=== PATIENT | female | born 1970 | race Caucasian/White ===

== ENCOUNTER 2018-10-28 17:47 | Emergency (ER) | payer MEDICAID, SELFPAY ==
[2018-10-28 17:51] VITALS: BP 145/80; PULSE 77; RESP 22; TEMP 36.6; O2SAT 99; BMI 21.0
--- NOTE | 2018-10-28 17:58 | ED.RN ---
PT REFUSED TO ANSWER QUESTIONS, UNABLE TO OBTAIN MUCH OF THE NEEDED INFORMATION.
--- NOTE | 2018-10-28 17:59 | ED.RN ---
DR. CLARK AT BEDSIDE TALKING WITH PT AND IS COOPERATIVE AND ANSWERING QUESTIONS FOR PHYSICIAN.
--- NOTE | 2018-10-28 18:01 | EKG12_ITS ---
Test Reason : Blood Pressure : / mmHG Vent. Rate : 066 BPM Atrial Rate : 066 BPM P-R Int : 166 ms QRS Dur : 068 ms QT Int : 406 ms P-R-T Axes : 078 090 071 degrees QTc Int : 425 ms Normal sinus rhythm Possible Left atrial enlargement Rightward axis Septal infarct , age undetermined Abnormal ECG Confirmed by NAHUN JARAMILLO, ZACK ([id number]), legal editor JACKSON JOHNSON ([id number] on 11/01/2018 2:46:33 PM Referred By: AMBER Confirmed By:ZACK GARNICA MD
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
[2018-10-28] MEDS: Ondansetron 4 MG/2 ML Vial IV (18:11)
[2018-10-28] MEDS: Morphine 4 MG/ML Syringe IV ×2 (18:11→18:57)
[2018-10-28] MEDS: 0.9% Normal Saline 1,000 ML 150 ML IV (18:11)
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
[2018-10-28 18:21] LABS: Absolute Lymphocyte Count 2.64 X10^3/ul (0.83-4.51); Absolute Neutrophil Count 6.7 X10^3/uL (2.0-7.7); Basophil# 0.02 X10^3/uL; Basophil% 0.2 % (0-1); Eosinophil# 0.03 X10^3/uL; Eosinophils% 0.3 % (0-5); Hematocrit 41.2 % (37-47); Hemoglobin 14.2 g/dl (12.0-15.0); Lymphocyte # 2.64 X10^3/ul (4.0); Lymphocyte % 26.7 % (19-41); Mean Corp Hgb Conc 34.5 g/gl (32-36); Mean Corpuscular Hgb 33.3 pg (27.0-32.0); Mean Corpuscular Volume 96.5 fL (81-99); Mean Platelet Vol. 11.4 fl (6.2-12.0); Monocyte# 0.46 X10^3/uL; Monocyte% 4.6 % (0-10); Neutrophil # 6.73 X10^3/uL (2.7-7.7); Platelet Count 159 K/mm3 (150-450); RBC Distribution Width CV 12.9 % (11.6-14.6); RBC Distribution Width SD 44.9 fl (35.1-43.9); Red Blood Count 4.27 M/mm3 (4.2-5.4); White Blood Count 9.9 K/mm3 (4.4-11.0)
[2018-10-28 18:22] LABS: POSITIVE COUNT NO; POSITIVE DIFFERENTIAL NO; POSITIVE MORPHOLOGY NO
[2018-10-28 18:36] LABS: ALB/GLOB Ratio 1.2 RATIO (0.9-2.4); AST(SGOT) 20 U/L (15-37); Alanine Aminotransfer ALT/SGPT 20 U/L (13-56); Albumin, Serum 3.9 g/dL (3.2-5.0); Alkaline Phosphatase 56 U/L (45-117); Anion Gap 6 (5-15); BUN 11 mg/dL (7-18); BUN/Creat Ratio 16.2 RATIO (10-20); Calcium,Total 8.4 mg/dL (8.5-10.1); Chloride 109 mmol/L (98-107); Creatinine, Serum 0.68 mg/dL (0.55-1.02); EST Glomerular Filtration Rate 99 mL/min (>60); Est Glom Filt Rate - Afr Amer 119 mL/min (>60); Globulin 3.3 g/dL (2.2-4.2); Glucose 105 mg/dL (74-106); Lipase 125 U/L (73-393); Potassium 3.4 mmol/L (3.5-5.1); Protein, Total 7.2 g/dL (6.4-8.2); Sodium Level 141 mmol/L (136-145)
[2018-10-28 18:44] LABS: Pregnancy, Serum, hCG Quali. NEGATIVE Negative (0-9 Nonpreg)
[2018-10-28 18:52] VITALS: BP 124/83; PULSE 81; RESP 12; O2SAT 97
[2018-10-28 19:00] VITALS: BP 124/73; PULSE 89; RESP 20; O2SAT 96
[2018-10-28] MEDS: HYDROmorphone 1 MG/ML Syringe IV (19:42)
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
[2018-10-28 20:03] VITALS: BP 124/73; PULSE 75; RESP 20; O2SAT 97
== END 2018-10-28 20:40 | disposition short-term general hospital (02) ==
LOC: ED 19:15
PROVIDERS: Emergency Provider Emergency Medicine
DX: S09.90XA Unspecified injury of head, initial encounter (principal); S22.42XA Multiple fractures of ribs, left side, initial encounter for closed fracture; S30.1XXA Contusion of abdominal wall, initial encounter; V47.6XXA Car passenger injured in collision with fixed or stationary object in traffic accident, initial encounter; Y93.9 Activity, unspecified; Y99.9 Unspecified external cause status; Y92.410 Unspecified street and highway as the place of occurrence of the external cause; Z72.0 Tobacco use
CPT/HCPCS: 70450; 71260; 72125; 74177; 80053; 80320; 83690; 84484; 84703; 85025; 93005; 96361; 96374; 96375; 96376; 99285; J7030; Q9967; G0480; J2405